=== PATIENT | female | born 1970 | race Caucasian/White ===

== ENCOUNTER 2017-07-14 21:22 | Emergency (ER) | payer OTHER ==
[~2017-07-14] VITALS: Ht 165.1 cm; Wt 65.7 kg
[~2017-07-14 21:22] MED LIST: MICROGESTIN FE1 EACH; NAPROSYN500 MG PO; ZOFRAN ODT4 MG PO
[2017-07-15] MEDS ORDERED: LIDODERM 5% P1 PATCH TD (00:43)
[2017-07-15] MEDS ORDERED: INDOCIN50 MG PO (00:43)
[2017-07-15 00:59] VITALS: BP 131/83
== END 2017-07-15 01:00 | disposition home or self-care (01) ==
LOC: EME 21:22
DX: M54.41 Lumbago with sciatica, right side (principal); M54.42 Lumbago with sciatica, left side; G89.29 Other chronic pain; R03.0 Elevated blood-pressure reading, without diagnosis of hypertension; Z88.5 Allergy status to narcotic agent; Z88.8 Allergy status to other drugs, medicaments and biological substances
CPT/HCPCS: 99281; 99284; J1100; J1885

== ENCOUNTER 2017-08-08 19:53 | Emergency (ER) | payer OTHER ==
[~2017-08-08] VITALS: Ht 165.1 cm; Wt 64.2 kg
[~2017-08-08 19:53] MED LIST changes: +INDOCIN50 MG PO; +LIDODERM 5% P1 PATCH TD
[2017-08-08 20:32] LABS: HEMATOCRIT 38.1 % (36.0-46.0); MCH 29.4 PG (29.0-34.0); MCHC 34.1 G/DL (30.0-36.0); MCV 86.2 FL (83-99); PLATELET COUNT 285 K/uL (156-360); RBC DIS.WIDTH-CV 14.1 % (11.8-14.6); RBC DIS.WIDTH-SD 44.8 % (39-53); RED BLOOD COUNT 4.42 M/uL (3.80-5.20); WHITE BLOOD COUNT 6.6 K/uL (4.1-10.2)
[2017-08-08 20:43] LABS: CHLORIDE 112 mEq/L (99-109); POTASSIUM 3.4 mEq/L (3.7-5.4); SODIUM 138 mEq/L (136-147)
[2017-08-08 20:45] LABS: GLUCOSE 122 mg/dL (70-99)
[2017-08-08 20:49] LABS: CREATININE 0.9 mg/dL (0.6-1.3); GFR ESTIMATE (CALCULATED) > 59 mL/min/
[2017-08-08 20:50] LABS: UREA NITROGEN (BUN) 10 mg/dL (9-23)
[2017-08-08 20:54] LABS: TROP-I INTERPRETATION NEGATIVE; TROPONIN-I < 0.01 ng/mL (0.0-0.30)
[2017-08-09 02:26] LABS: TROP-I INTERPRETATION NEGATIVE; TROPONIN-I < 0.01 ng/mL (0.0-0.30)
[2017-08-09 02:38] LABS: D-DIMER ELISA < 150.00 ng/mLDDU (<230)
[2017-08-09 03:26] VITALS: BP 137/98
== END 2017-08-09 03:26 | disposition home or self-care (01) ==
LOC: EME 19:53
PROVIDERS: Emergency Medicine
DX: R07.9 Chest pain, unspecified (principal); Z88.8 Allergy status to other drugs, medicaments and biological substances
CPT/HCPCS: 71046; 80048; 84484; 85027; 85379; 93005

== ENCOUNTER 2017-10-25 10:04 | Emergency (ER) | payer OTHER ==
[~2017-10-25] VITALS: Ht 165.1 cm; Wt 65.1 kg
[2017-10-25 11:47] LABS: HEMATOCRIT 38.5 % (36.0-46.0); HEMOGLOBIN 13.2 G/DL (11.9-15.5); MCH 29.9 PG (29.0-34.0); MCHC 34.3 G/DL (30.0-36.0); MCV 87.1 FL (83-99); PLATELET COUNT 249 K/uL (156-360); RBC DIS.WIDTH-CV 13.8 % (11.8-14.6); RBC DIS.WIDTH-SD 44.4 % (39-53); RED BLOOD COUNT 4.42 M/uL (3.80-5.20)
[2017-10-25 12:00] LABS: ALBUMIN 4.2 g/dL (3.2-4.8); CHLORIDE 112 mEq/L (99-109); POTASSIUM 3.8 mEq/L (3.7-5.4); SODIUM 142 mEq/L (136-147)
[2017-10-25 12:03] LABS: GLUCOSE 107 mg/dL (70-99); TOTAL PROTEIN 6.9 g/dL (6.4-8.3)
[2017-10-25 12:05] LABS: TOTAL BILIRUBIN 0.2 mg/dL (0.0-1.0)
[2017-10-25 12:06] LABS: ALKALINE PHOSPHATASE 63 IU/L (3-129); CREATININE 0.8 mg/dL (0.6-1.3); GFR ESTIMATE (CALCULATED) > 59 mL/min/
[2017-10-25 12:07] LABS: UREA NITROGEN (BUN) 11 mg/dL (9-23)
[2017-10-25 12:08] LABS: AST (GOT) 16 IU/L (2-34)
[2017-10-25 12:09] LABS: ALT (GPT) 10 IU/L (3-49)
[2017-10-25 12:15] LABS: QUANTITATIVE HCG < 4.0 MIU/ML
[2017-10-25 12:58] LABS: APPEARANCE CLEAR ((CLEAR)); BILIRUBIN NEGATIVE; BLOOD NEGATIVE; COLOR YELLOW ((YELLOW)); GLUCOSE (STRIP) NEGATIVE; KETONES NEGATIVE; LEUKOCYTES NEGATIVE; NITRITE NEGATIVE; PROTEIN (STRIP) NEGATIVE; SPECIFIC GRAVITY 1.017 (1.000-1.030); UCUL ADDED? NO; UROBILINOGEN 0.2 MG/DL (0.2-1.0)
[2017-10-25 14:56] VITALS: BP 123/67
== END 2017-10-25 14:58 | disposition home or self-care (01) ==
LOC: EME 10:04
DX: K92.2 Gastrointestinal hemorrhage, unspecified (principal); N20.0 Calculus of kidney; Z79.3 Long term (current) use of hormonal contraceptives; Z88.8 Allergy status to other drugs, medicaments and biological substances; Z88.5 Allergy status to narcotic agent
CPT/HCPCS: 74022; 80053; 81003; 84702; 85027; 99281; 99284